=== PATIENT | female | born 1960 | race Caucasian/White ===

== ENCOUNTER 2018-02-24 14:41 | Emergency (ER) | payer OTHER ==
[~2018-02-24] VITALS: Ht 177.8 cm; Wt 83.9 kg
[~2018-02-24 14:41] MED LIST: ACETAMINOPHEN325 M1 PO; ALBUTEROL2.5 MG/0.1; AMBIEN 5 MG TABL5 M1 PO; ATIVAN1 MG PO; BUPROBAN150 MG PO; CEFTIN500 MG PO; CYCLOBENZAPRINE10 MG; GABAPENTIN 100100 MG PO; IBUPROFEN 600600 M1 PO; IBUPROFEN200 M2 PO; IMODIUM A-1 MG/7.5 M PO; MEDROLDOSEPACK; MOBIC15 MG PO; NEURONTIN 300300 M1 PO; NEURONTIN800 MG PO; NORCO 5-325 TA1 EACH PO; NORTRIPTYLINE H50 M3 PO; OXECTA5 MG PO; PROZAC 20 MG20 MG; PROZAC40 MG PO; TESSALON PERLE100 MG PO; WELLBUTRIN SR150 M1 PO; XANAX 0.25 MG0.25 MG PO
[2018-02-24] MEDS ORDERED: ULTRAM 50MG TAB50 MG PO (16:07)
[2018-02-24 16:11] VITALS: BP 129/88
== END 2018-02-24 16:12 | disposition home or self-care (01) ==
LOC: ER 14:41
DX: S92.351A Displaced fracture of fifth metatarsal bone, right foot, initial encounter for closed fracture (principal); F32.9 Major depressive disorder, single episode, unspecified; F41.9 Anxiety disorder, unspecified; Z87.442 Personal history of urinary calculi; Z88.1 Allergy status to other antibiotic agents; Z88.5 Allergy status to narcotic agent; Z91.041 Radiographic dye allergy status; W10.8XXA Fall (on) (from) other stairs and steps, initial encounter; Y93.89 Activity, other specified; Y92.89 Other specified places as the place of occurrence of the external cause; Y99.8 Other external cause status